=== PATIENT | female | born 1975 | race Two or more races ===

== ENCOUNTER → 2024-08-17 | Emergency (ER) | payer MEDICAID ==
[~2024-08-17] VITALS: Ht 149.9 cm; Wt 53.1 kg
[~2024-08-17] MED LIST: ALBU18HF2 INH; BENZ-13 PO
[2024-08-17 09:51] VITALS: BP 119/79; TEMP 97.7; O2SAT 98
== END ==
LOC: ER 09:00
DX: J06.9 Acute upper respiratory infection, unspecified (principal); B97.89 Other viral agents as the cause of diseases classified elsewhere; R53.81 Other malaise; Z60.2 Problems related to living alone